=== PATIENT | female | born 1965 | race Caucasian/White ===

== ENCOUNTER 2017-10-20 16:22 | Emergency (ER) | payer OTHER ==
[~2017-10-20] VITALS: Ht 165.1 cm; Wt 70.6 kg
[~2017-10-20 16:22] MED LIST: AMANTADINE100 M1 PO; AMPICILLIN TRI250 MG PO; AZELASTINE137 MCG/0. BOTH NARES; CLARITIN,ALAVAR10 MG PO; COLACE100 MG PO; COPAXONE20 MG/KIT SC; COPAXONE40 MG/1 ML SC; CRANBERRY TABL1 EACH PO; ELAVIL25 MG PO; FLONASE ALLERG9.9 ML BOTH NARES; HYDROCODON-ACE1 EAC7 PO; RELPAX40 MG PO; SILVADENE20 GM TP; SKELAXIN800 MG PO; TOPAMAX50 MG PO
[2017-10-20 17:05] LABS: HEMATOCRIT 39.3 % (36.0-46.0); HEMOGLOBIN 13.2 G/DL (11.9-15.5); MCHC 33.6 G/DL (30.0-36.0); MCV 98.3 FL (83-99); PLATELET COUNT 124 K/uL (156-360); RBC DIS.WIDTH-SD 44.4 % (39-53); WHITE BLOOD COUNT 9.4 K/uL (4.1-10.2)
[2017-10-20 17:15] LABS: CHLORIDE 112 mEq/L (99-109); POTASSIUM 3.6 mEq/L (3.7-5.4); SODIUM 143 mEq/L (136-147)
[2017-10-20 17:17] LABS: GLUCOSE 115 mg/dL (70-99)
[2017-10-20 17:21] LABS: GFR ESTIMATE (CALCULATED) > 59 mL/min/
[2017-10-20 17:22] LABS: UREA NITROGEN (BUN) 30 mg/dL (9-23)
[2017-10-20] MEDS ORDERED: VENTOLIN HFA18 GM IH (17:44)
[2017-10-20] MEDS ORDERED: TESSALON200 MG PO (17:44)
[2017-10-20] MEDS ORDERED: FLEXERIL10 MG PO (17:47)
[2017-10-20 17:54] VITALS: BP 146/80
== END 2017-10-20 18:00 | disposition home or self-care (01) ==
LOC: EME 16:22
DX: R05 Cough (principal); M62.838 Other muscle spasm; R07.81 Pleurodynia; J34.89 Other specified disorders of nose and nasal sinuses; K59.00 Constipation, unspecified; Z85.3 Personal history of malignant neoplasm of breast; Z90.10 Acquired absence of unspecified breast and nipple
CPT/HCPCS: 71046; 74018; 80048; 85027; 99281; 99283

== ENCOUNTER 2017-12-21 12:58 | Emergency (ER) | payer OTHER ==
[~2017-12-21] VITALS: Ht 170.2 cm; Wt 69.8 kg
[~2017-12-21 12:58] MED LIST changes: +FLEXERIL10 MG PO; +TESSALON200 MG PO; +VENTOLIN HFA18 GM IH
[2017-12-21 14:45] LABS: HEMATOCRIT 39.2 % (36.0-46.0); HEMOGLOBIN 13.7 G/DL (11.9-15.5); MCHC 34.9 G/DL (30.0-36.0); RBC DIS.WIDTH-CV 11.9 % (11.8-14.6); RBC DIS.WIDTH-SD 41.8 % (39-53); RED BLOOD COUNT 4.15 M/uL (3.80-5.20); WHITE BLOOD COUNT 6.3 K/uL (4.1-10.2)
[2017-12-21 14:48] LABS: MCV 94.5 FL (83-99); PLATELET COUNT 196 K/uL (156-360)
[2017-12-21 14:52] LABS: ALBUMIN 3.8 g/dL (3.2-4.8)
[2017-12-21 14:53] LABS: CHLORIDE 109 mEq/L (99-109); POTASSIUM 3.5 mEq/L (3.7-5.4); SODIUM 143 mEq/L (136-147)
[2017-12-21 14:55] LABS: GLUCOSE 92 mg/dL (70-99); TOTAL PROTEIN 6.5 g/dL (6.4-8.3)
[2017-12-21 14:57] LABS: TOTAL BILIRUBIN 0.2 mg/dL (0.0-1.0)
[2017-12-21 14:58] LABS: ALKALINE PHOSPHATASE 75 IU/L (3-129)
[2017-12-21 14:59] LABS: CREATININE 0.8 mg/dL (0.6-1.3); GFR ESTIMATE (CALCULATED) > 59 mL/min/
[2017-12-21 15:00] LABS: AST (GOT) 17 IU/L (2-34); UREA NITROGEN (BUN) 17 mg/dL (9-23)
[2017-12-21 15:01] LABS: ALT (GPT) 27 IU/L (3-49)
[2017-12-21] MEDS ORDERED: MOTRIN800 MG PO (16:34)
[2017-12-21 16:59] VITALS: BP 129/62
== END 2017-12-21 16:59 | disposition home or self-care (01) ==
LOC: EME 12:58
PROVIDERS: Nurse Practitioner Family
DX: R07.81 Pleurodynia (principal); M54.6 Pain in thoracic spine; G35 Multiple sclerosis; Z85.3 Personal history of malignant neoplasm of breast; Z92.3 Personal history of irradiation
CPT/HCPCS: 71275; 80053; 85027; 99281; 99284